=== PATIENT | male | born 1945 | race Caucasian/White ===

== ENCOUNTER 2017-04-28 06:05 | Emergency (ER) | payer OTHER ==
[~2017-04-28] VITALS: Ht 175.3 cm; Wt 104.3 kg
--- NOTE | ~2017-04-28 | EKG ---
[address] [address] ELECTROCARDIOGRAM REPORT Name: EULA LEONG Room #: DEP TEX Ernst#: [id number] Admission: 04/28/17 Attend Phys: Discharge: 04/28/17 Date of : 43 Report #: [id number] THIS REPORT FOR: //name// [facility] ED Test Date: 2017-04-28 Test Time: 08:18:00 Pat Name: EULA LEONG Department: Room: Gender: M Lamination Inspector: : 1945 Requested By: Jeffry Valdivia Order Number: [id number] MD: Saad Bennett Measurements Intervals [place] Rate: 62 P: 64 PA: 161 QRS: -36 QRSD: 101 T: 3 QT: 459 QTc: 467 Interpretive Statements Sinus rhythm Probable left atrial enlargement Abnormal R-wave progression, late transition Left ventricular hypertrophy Baseline wander in lead(s) V3,V4 Compared to ECG 06/07/2012 08:25:55 Left-axis deviation no longer present Myocardial infarct finding no longer present Electronically Signed On 05-02-2017 21:49:39 CDT by Saad Bennett [email or web address] <ELECTRONICALLY SIGNED> By: Saad Bennett MD 05/02/17 2149 7 7 Saad Bennett MD /EPI
--- NOTE | ~2017-04-28 | EKG ---
[address] [address] ELECTROCARDIOGRAM REPORT Name: EULA LEONG Room #: DEP TEX Ernst#: [id number] Admission: 04/28/17 Attend Phys: Discharge: 04/28/17 Date of : 43 Report #: [id number] THIS REPORT FOR: //name// [facility] ED Test Date: 2017-04-28 Test Time: 08:18:00 Pat Name: EULA LEONG Department: Room: Gender: M Service Or Work Dispatcher Chief: : 1945 Requested By: Jeffry Valdivia Order Number: [id number] MD: Saad Bennett Measurements Intervals [place] Rate: 62 P: 64 SD: 161 QRS: -36 QRSD: 101 T: 3 QT: 459 QTc: 467 Interpretive Statements Sinus rhythm Probable left atrial enlargement Abnormal R-wave progression, late transition Left ventricular hypertrophy Baseline wander in lead(s) V3,V4 Compared to ECG 06/07/2012 08:25:55 Left-axis deviation no longer present Myocardial infarct finding no longer present Electronically Signed On 05-02-2017 21:49:24 CDT by Saad Bennett [email or web address] <ELECTRONICALLY SIGNED> By: Saad Bennett MD 05/02/17 2149 7 7 Saad Bennett MD /EPI
[~2017-04-28 06:05] MED LIST: ASPIRIN325 PO; AXIRON90 ML PO; COSOPT OCUMETER10 M1; EFFIENT10 MG PO; FISH OIL 1,0001 EAC5 PO; GLUCOSAMIN-CHO1 EACH PO; HYZAAR 100-12.1 EACH PO; JANUMET 50-1,01 EACH PO; LUMIGAN2.5 M1; MUCINEX600 MG PO; MULTIVITAMINS1 EAC7 PO; TOPROL XL50 MG PO; VITAMIN C120 GM PO; VITAMIN E100 M1 PO; VYTORIN 10-201 EACH PO
[2017-04-28] MEDS ORDERED: ATORVASTATIN CA40 MG PO (06:45)
[2017-04-28] MEDS ORDERED: BYSTOLIC 5 MG5 M1 PO (06:46)
[2017-04-28] MEDS ORDERED: CHLORTHALIDONE25 MG PO (06:46)
[2017-04-28] MEDS ORDERED: HYDRALAZINE 2525 MG PO (06:46)
[2017-04-28] MEDS ORDERED: TRAVATAN Z2.5 ML (06:47)
[2017-04-28] MEDS ORDERED: ARTIFICIAL TEA1 EACH (06:48)
[2017-04-28] MEDS ORDERED: COMBIGAN EYE DR10 ML OPHTHALMIC (06:48)
[2017-04-28 08:14] LABS: HEMATOCRIT 36.3 % (42.0-52.0); HEMOGLOBIN 12.1 gm/dL (14.0-18.0); MCH 30.2 pg (26.0-34.0); MCHC 33.5 g/dL (28.0-37.0); MCV 90.1 fL (80.0-100.0); RBC 4.02 mil/uL (4.50-6.00); RDW 13.6 % (10.5-14.5); WBC 11.5 thou/uL (4.0-11.0)
[2017-04-28 08:55] LABS: ANION GAP 11 mmol/L (7-16); BUN 39 mg/dL (7-18); CALCIUM 9.4 mg/dL (8.5-10.1); CHLORIDE 107 mmol/L (98-107); CO2 24 mmol/L (21-32); CREATININE 2.7 mg/dL (0.7-1.3); GLUCOSE 189 mg/dL (74-106); POTASSIUM 4.3 mmol/L (3.5-5.1); SODIUM 142 mmol/L (136-145)
[2017-04-28 09:04] LABS: TROPONIN-I < 0.04 ng/mL (<0.04-0.07)
[2017-04-28] MEDS ORDERED: ZOFRAN ODT4 MG PO (09:35)
== END 2017-04-28 10:05 | disposition home or self-care (01) ==
LOC: ER 06:05
PROVIDERS: Emergency Medicine
DX: R42 Dizziness and giddiness (principal); E11.9 Type 2 diabetes mellitus without complications; I10 Essential (primary) hypertension; E78.00 Pure hypercholesterolemia, unspecified; F17.210 Nicotine dependence, cigarettes, uncomplicated; Z95.9 Presence of cardiac and vascular implant and graft, unspecified; Z79.82 Long term (current) use of aspirin

== ENCOUNTER → 2017-05-14 | Outpatient (CLI) | payer OTHER ==
[~2017-05-14] VITALS: Ht 175.3 cm; Wt 104.3 kg
[~2017-05-14] MED LIST changes: +AMARYL1 MG PO; +ARTIFICIAL TEA1 EACH; +ATORVASTATIN CA40 MG PO; +BYSTOLIC 5 MG5 M1 PO; +CHLORTHALIDONE25 MG PO; +COMBIGAN EYE DR10 ML OPHTHALMIC; +COZAAR 50 MG TA50 M2 PO; +HYDRALAZINE 2525 MG PO; +TRAVATAN Z2.5 ML; +XALATAN2.5 ML OPHTHALMIC; +ZOFRAN ODT4 MG PO
--- NOTE | ~2017-05-14 | HPC ---
[facility] [address] [place] [address] PAIN MANAGEMENT CONSULTATION Name: EULA LEONG Room #: REG CHRIST Ernst#: [id number] Admission: 05/14/17 Attend Phys: Jolene Jiménez MD Discharge: Date of : 43 Report #: [id number] THIS REPORT FOR: //name// CC: Ruben Jiménez DATE OF SERVICE: 05/14/2017 CHIEF COMPLAINT: Back and leg pain. HISTORY OF PRESENT ILLNESS: The patient is a 71-year-old gentleman who has been referred to the pain clinic for evaluation. The patient states that he has pain in his low back and down into his legs. This can be quite problematic when he is standing for a period of time. He uses a cart and gleans on it, when he goes shopping. Prolonged standing causes pain, which starts to become more problematic the longer he stands. He is limited in his ability to walk because of pain, which continues to escalates. He then sits and rests and in about 5 minutes, his pain improves. He has been seen by a aerial photographer. There was found that he had had some narrowing in the veins in his leg. He underwent a stent placement. He noted that the pain continued. It was felt that it was not vascular stenosis that was causing his pain, but probably spinal stenosis. He had an MRI of his back which did show some spinal stenosis. He has diabetes. He has come to the Pain Clinic for evaluation. ALLERGIES: No known drug allergies. MEDICATIONS: Amlodipine 5 mg, aspirin 325 daily, Lipitor, Bystolic 10 mg, chlorthalidone 25 mg, clopidogrel 75 mg, Combigan right eye b.i.d., fish oil, glimepiride 0.5 mg, Janumet 50/500 b.i.d., lorazepam 1 mg, losartan 50 mg, Travatan eye drops, vitamin C. PAST MEDICAL HISTORY: Diabetes, hypercholesterolemia, hypertension, ataxia -- patient has some dizziness, he has seen an ENT in the past. Chronic low back pain and spinal stenosis, cervical spondylosis without myelopathy. Hereditary and idiopathic peripheral neuropathy, obstructive sleep, claustrophobia, phobia/anxiety disorder, takes lorazepam. Glaucoma and heart disease. EMG demonstrated neuropathy. Also cervical spine MRI in the past in 2013 revealed mild central disk protrusion at C4/C5 with cord deformity. ENT evaluation: The patient was dissatisfied with ENT physician secondary to receiving medications, which he states elevated his blood sugar and he was not told that could be a problem. FAMILY HISTORY: Father; malignant tumor of the lung ____, senility. Mother; heart disease, diabetes, anxiety. Father at age 84, lung cancer. Mother at age 72[place] [address] PAIN MANAGEMENT CONSULTATION Name: EULA LEONG Room #: REG CL Sujata#: [id number] Admission: 05/14/17 Attend Phys: Jolene Jiménez MD Discharge: Date of : 43 Report #: [id number] SOCIAL HISTORY: He is retired. Four years of college. , 4 children. Smokes cigarettes. Denies use of alcohol or drugs. PAST SURGICAL HISTORY: Heart stent in 1991. Eye surgery for glaucoma 12/31 and 01/31. REVIEW OF SYSTEMS: 14 points reveals recent weight change, fatigue, weakness, eye disease, blurred/double vision, glaucoma, hearing loss, earaches and damage, heart trouble, shortness of breath, palpitations, lightheadedness, dizziness, numbness and tingling sensation in the lower extremities and down on his toes, diabetes, hot and cold intolerance, excessive thirst/urination. LABORATORY DATA: MRI of the lumbar spine dated 09/16/2016 reveals: 1. L4-L5, stable broad bulge and moderate anterior and posterior spondylosis. Posterior osteophyte complex with facet arthrosis and ligamentum flavum hypertrophy resulting in stable mild to moderate spinal, moderate right neural foramen, and mid left foraminal stenosis. 2. L5-S1, stable broad bulge with moderate anterior and posterior spondylosis. Posterior disk osteophyte complex with facet arthrosis and ligamentum flavum hypertrophy, resulting stable moderate spinal and mild bilateral foraminal stenosis. Stable disk osteophyte complex encroachment upon bilateral S1 nerve roots. Stable usual levoscoliosis. PHYSICAL EXAMINATION: Blood pressure 141/94, pulse 66, respiratory rate 16, room air saturation is 100%. Height 5 feet 9 inches, weight 230 pounds, BMI is 33. The patient has some dizziness and vertigo associated with his inner ear. He did not pursue further evaluation. His ENT referred him to a treatment plan of which he did not agree. The patient complains of some numbness and tingling down his feet. Complains of pain and discomfort in the low back area and pain, which radiates down into the left buttocks after sitting or with prolonged walking and activity. He notes cramping, aching discomfort in the low back area, which limits his ability to ambulate. Pain improves and decreases after sitting for about 5 minutes. ASSESSMENT: Spinal stenosis as described above. Other impression as in past medical history. RECOMMENDATIONS: We discussed treatment options with the patient. Risks and benefits of epidural steroid injection were explained. Possible complications of the procedure were discussed. A model was used to indicate the area of probable pathology. The patient at this juncture elects to consider his options. He will follow up in the Pain Clinic in the future should he decide to undergo an epidural steroid injection. [facility] [address] [place] [address] PAIN MANAGEMENT CONSULTATION Name: EULA LEONG Room #: REG [facility] Olivia.#: [id number] Admission: 05/14/17 Attend Phys: Jolene Jiménez MD Discharge: Date of : 43 Report #: [id number] We would like to thank you for letting us participate in his care. A total of 45 minutes time was spent in evaluating and answering the patient's questions. By: 1430 1544 Jolene Jiménez MD /
[2017-05-14 10:25] VITALS: BP 141/94
== END ==
LOC: PAIN 07:04
DX: M48.06 Spinal stenosis, lumbar region (principal); M79.605 Pain in left leg; M79.604 Pain in right leg

== ENCOUNTER 2020-04-05 21:18 | Inpatient (IN) | payer OTHER, BC ==
[~2020-04-05] VITALS: Ht 175.3 cm; Wt 100.0 kg
[~2020-04-05 21:18] MED LIST changes: +COZAAR 50 MG TA50 M1 PO; -COZAAR 50 MG TA50 M2 PO
[2020-04-05 21:22] VITALS: BP 187/63
[2020-04-05 22:46] LABS: ABSOLUTE NEUTROPHILS 9.6 thou/uL (1.4-8.2); BASOPHILS 0.7 % (0.0-2.0); EOSINOPHILS 0.5 % (0.0-3.0); HEMATOCRIT 22.1 % (42.0-52.0); HEMOGLOBIN 7.3 gm/dL (14.0-18.0); LYMPHOCYTES 5.1 % (24.0-44.0); MCHC 33.2 g/dL (28.0-37.0); MCV 90.3 fL (80.0-100.0); MONOCYTES 4.6 % (1.0-8.0); PLATELET COUNT 225 thou/uL (150-400); POLYS 89.1 % (36.0-66.0); RBC 2.44 mil/uL (4.50-6.00); RDW 15.5 % (10.5-14.5); WBC 10.7 thou/uL (4.0-11.0)
[2020-04-05 23:04] LABS: ALBUMIN 2.7 g/dL (3.4-5.0); ANION GAP 20 mmol/L (7-16); BUN 91 mg/dL (7-18); CALCIUM 8.1 mg/dL (8.5-10.1); CHLORIDE 104 mmol/L (98-107); CREATININE 10.4 mg/dL (0.7-1.3); GLUCOSE 186 mg/dL (74-106); LIPASE 528 U/L (73-393); POTASSIUM 4.1 mmol/L (3.5-5.1); SGOT 13 U/L (15-37); SGPT 11 U/L (30-65); SODIUM 134 mmol/L (136-145); TOTAL BILIRUBIN 0.1 mg/dL (0.2-1.0); TOTAL PROTEIN 7.5 g/dL (6.4-8.2); TROPONIN-I <0.06 ng/mL (<0.06)
[2020-04-05 23:05] LABS: CO2 10 mmol/L (21-32)
[2020-04-05] MEDS ORDERED: ASA81BEC PO (23:14)
[2020-04-05] MEDS ORDERED: DEMADEX20 MG PO (23:15)
[2020-04-05] MEDS ORDERED: IRON PO (23:16)
[2020-04-05] MEDS ORDERED: VITAMIN B-121000 MC2 PO (23:20)
[2020-04-05] MEDS ORDERED: SODIUM BICARBONATE PO (23:24)
[2020-04-05 23:50] LABS: BE(vivo) -21.1 mmol/L (-2 to +3); HCO3 7.1 mmol/L (22.0-26.0); PCO2 VENOUS 24.3 mmHg (41.0-51.0); PO2 VENOUS 97.7 mmHg (35.0-45.0)
[2020-04-06] VITALS (7 sets, daily range): BP systolic 133–154; BP diastolic 49–68
[2020-04-06] MEDS ORDERED: SIMBRINZA 1%-0.28 ML (00:31)
[2020-04-06] MEDS ORDERED: CALCITRIOL0.25 MCG PO (00:32)
[2020-04-06] MEDS ORDERED: BETIMOL5 ML OPHTHALMIC (00:38)
[2020-04-06] MEDS ORDERED: ACTOS15 MG PO (00:47)
[2020-04-06] MEDS ORDERED: IRON325 M1 PO (01:39)
--- NOTE | 2020-04-06 03:49 | NUR ---
HAVE ATTEMPTED TO CALL REPORT X2, NURSE EITHER BUSY OR PUT ON HOLD FOR SEVERAL MINUTES. WILL CONTINUE TO ATTEMPT OR PERFORM BEDSIDE REPORTING.
--- NOTE | 2020-04-06 03:52 | NUR ---
ATTEMPTING TO CALL FOR 3RD TIME FOR REPORT. NO ANSWER THUS FAR.
[2020-04-06 07:25] LABS: WBC 8.7 thou/uL (4.0-11.0)
[2020-04-06 07:27] LABS: HEMATOCRIT 20.6 % (42.0-52.0); HEMOGLOBIN 6.8 gm/dL (14.0-18.0); MCH 30.3 pg (26.0-34.0); MCHC 33.2 g/dL (28.0-37.0); MCV 91.3 fL (80.0-100.0); RBC 2.26 mil/uL (4.50-6.00); RDW 15.4 % (10.5-14.5)
[2020-04-06 07:43] LABS: CALCIUM 8.2 mg/dL (8.5-10.1); POTASSIUM 4.3 mmol/L (3.5-5.1)
[2020-04-06 07:45] LABS: % SATURATION 19 % (20-39); IRON 31 ug/dL (65-175); TIBC 160 ug/dL (250-450)
[2020-04-06 07:48] LABS: CREATININE 9.4 mg/dL (0.7-1.3)
[2020-04-06 08:09] LABS: CHOLESTEROL 138 mg/dL (<200); HDL CHOLESTEROL 46 mg/dL (>40); LDL CHOLESTEROL 70 mg/dL (<100); TRIGLYCERIDE 113 mg/dL (<150); VLDL 23 mg/dL (<40)
[2020-04-06 08:26] LABS: FOLIC ACID 7.5 ng/mL (8.6-58.9)
--- NOTE | 2020-04-06 09:10 | NUR ---
PT ADMITTED TO ROOM 355 FROM ER, VSS, HT AND WT TAKEN, PT ON HEART MONITOR, EDUCATED ON ADMISSION CONCERNS, HOME MEDS SENT TO LAB, CELL PHONE AND HOME PHONE HAND SET AND WALLET WITH PT. CLOTHING AND SHOES PLACED IN BAG. NO C/O PAIN STATED HE WAS JUST TOO WEAK TO CARE FOR SELF AT HOME. REPORT GIVEN TO NEXT SHIFT TO CON'T WITH PPOC.
--- NOTE | 2020-04-06 16:37 | NUR ---
ASSESSMENT CHARTED. PT ALERT AND ORIENTED. VSS. DENIED HAVING PAIN OR DISCOMFORT. COVID TEST NEGATIVE. INFECTION DISEASE NURSE NOTIFIED. SUGGESTED TO DO 2ND COVID TEST. PT REFUSED THE 2ND COVID TEST. SEEN BY FORMING MACHINE OPERATOR. NEW ORDERS NOTED. DROPLET COVID PRECAUTION MAINTAINED. NO NAUSEA OR DIARRHEA THIS THIS SHIFT. WILL CONTINUE TO MONITOR.
--- NOTE | 2020-04-07 01:47 | NUR ---
Patient instructed earlier for need for stool specimen. Went to bathroom, did not save stool specimen. Stated it was formed.
--- NOTE | 2020-04-07 04:10 | NUR ---
Patient making slow progress towards outcome goals. Vital signs and rhythm stable. Afebrile. Denies pain. Gait steady up to bathroom. IVFluids with Bicarb infusing. COVID negative and refused 2nd swab ordered. No fever since admission. Formed BM x 1 which patient did not save.
[2020-04-07 04:45] VITALS: BP 148/78
[2020-04-07 05:38] LABS: GLYCOHEMOGLOBIN (HGB A1C) 6.3 % (4.8-5.6)
[2020-04-07 06:22] LABS: ALBUMIN 2.4 g/dL (3.4-5.0); CALCIUM 7.8 mg/dL (8.5-10.1); PHOSPHORUS 7.5 mg/dL (2.5-4.9); POTASSIUM 4.1 mmol/L (3.5-5.1)
[2020-04-07 06:38] LABS: CREATININE 10.5 mg/dL (0.7-1.3)
[2020-04-07 07:41] VITALS: BP 145/59
--- NOTE | 2020-04-07 10:29 | NUR ---
PT MAY BE REMOVED FROM ENHANCED PRECAUTIONS PER ZOE AGUILAR
--- NOTE | 2020-04-07 14:21 | HC ---
[facility] [place] [address] CONSULTATION Name: EULA LEONG Room #: 355-P ADM IN M.R.#: [id number] Admission: 04/06/20 Attend Phys: Amador Orourke MD Discharge: Date of : 43 Report #: [id number] THIS REPORT FOR: cc: Ruben Holm MD, Cabot L. MD Neufeld, Timothy K. MD ~ CC: Ruben Orourke DATE OF SERVICE: 04/06/2020 NEPHROLOGY CONSULTATION REASON FOR CONSULTATION: Renal failure. HISTORY OF PRESENT ILLNESS: This is a 74-year-old male who came into the Emergency Room with several complaints. He has been weak. He has lost his appetite. He states he has had diarrhea for 1-2 months with frequent liquid stools. He has developed a bad taste in his mouth and he says it is metallic in nature. He has not had any edema. He says he has felt lightheaded and dizzy at times and is concerned that he is dehydrated. Upon presentation to the Emergency Room, he has labs that will be noted below, but frankly he is in renal failure with a creatinine of over 10. The patient denies much knowledge of his renal status. Although as our discussion continued, I think he is more aware that he admits. I was able to find that he saw one of my practice associates in the office for at least 4 years from 2014 until of 01/2019. That was with Dr. Jose Espino. He was last seen in 01/2019 and at that time, his creatinine level was about 3.8. He was instructed to obtain some additional renal and renal replacement therapy education and consider getting a fistula placed in his arm. He was due to be seen back a few months after that, but then did not follow up. He states frankly that he fired Dr. Espino because his kidneys were getting worse. More recently, he has been seen in [place] by Dr. Velázquez. Dr. Velázquez has told him he needs to prepare for dialysis and the patient is ready to stop seeing Dr. Velázquez because once again his kidneys are getting worse. He has not gone for evaluation for dialysis access. He does not know what his most recent creatinine levels have been. He states for the most part he has been taking his medications. He has had many of the symptoms as noted above. He has had no difficulty voiding urine now. He reports no recent edema. He has had some mild myoclonus, mild pruritus. No fevers or chills. He has had occasional cough and some dyspnea with exertion. Nothing to suggest COVID disease and he was tested in the Emergency Room and is negative. PAST MEDICAL HISTORY: Type 2 diabetes with an onset about 1989 and hypertension was diagnosed about the same time. He has had progressive chronic kidney [address] [address] CONSULTATION Name: EULA LEONG Room #: 355-P [facility] IN ..#: [id number] Admission: 04/06/20 Attend Phys: Amador Orourke MD Discharge: Date of : 43 Report #: [id number] disease over the years. He has been maintained on multiple antihypertensive medications at least when he was still being seen in our office including losartan, Bystolic, amlodipine and chlorthalidone. When I asked about what he is taking now, he is a bit uncertain. He has a history of coronary artery disease and had a coronary artery stent placed in 2010. He has hyperlipidemia, previous cataract removal, some glaucoma. MEDICATIONS: On admission and I am not sure if this is accurate, include losartan 100 mg daily, Bystolic 10 mg daily, chlorthalidone 25 mg daily. Those do match our office records. He is listed as being on Actos, Amaryl, Janumet, but the only one of those that matches our office records from a year ago was the Janumet and he is not willing to really tell me what he is taking. It looks like he has been on some loop diuretic in the form of torsemide. He is now on some iron. Also, hydralazine, aspirin, sodium bicarbonate, but he does not recognize that he is taking those, when I talked to him about that. ALLERGIES: No known medical allergies. FAMILY HISTORY: Father was of lung cancer. Mother was with diabetes and heart disease. He has 1 brother who is alive and does help him out with some of his medical needs. He is not . SOCIAL HISTORY: Lives in [place], [place]. 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 REVIEW OF SYSTEMS: Mainly positive for those symptoms noted above including decreased appetite, some metallic taste in his mouth. Mild nausea. No vomiting. Frequent diarrhea, sometimes 8-10 stools a day, which were all liquid. He reports never a solid stool. Denies abdominal cramping. Denies blood loss in his stools. Reports no difficulty voiding urine. No recent problems with edema. He says it is controlled with his diuretics, which apparently he has been taking. He has had a couple of days of some lightheadedness and dizziness when he arises suggesting hypotension. He is unaware of fevers, chills or sweats. He has mild cough. He has noticed some myoclonus when I asked. PHYSICAL EXAMINATION: GENERAL: Elderly appearing male, somewhat lethargic. VITAL SIGNS: Blood pressure 139/49, heart rate 59, temperature 97.5. He did have a fever to 102.2 on arrival. Oxygen saturation 100%. HEENT: Shows pupils are equal and reactive. Sclerae nonicteric. Oral mucosa is moist. NECK: Supple without adenopathy, thyromegaly, JVD or bruit. CHEST: Clear throughout. BACK: Shows no CVA tenderness. CARDIOVASCULAR: Heart has a regular rate and rhythm. [facility] [address] [place] [address] CONSULTATION Name: EULA LEONG Room #: 355-P [facility] IN ..#: [id number] Admission: 04/06/20 Attend Phys: Amador Orourke MD Discharge: Date of : 43 Report #: [id number] ABDOMEN: Bowel sounds which are present. It is soft, nontender, nondistended. I cannot palpate organomegaly or masses. EXTREMITIES: Show no edema in fact he has borderline low skin turgor. LABORATORY DATA: From admission, sodium 134, potassium 4.1, chloride 104, bicarbonate 10, BUN 91, creatinine 10.4, after some IV fluid, BUN 89, creatinine 9.4 with a bicarbonate of 11, AST 13, ALT 11, total bilirubin 0.1, calcium 8.2, total protein 7.5, albumin 2.7, lactate 0.7. White count 10.7, hemoglobin 7.3, hematocrit 22.1 with an MCV of 91.3, platelets 225,000. Original urinalysis not done. Blood gas; pH 7.08, pCO2 of 24.3, pO2 of 97.7. Portable chest x-ray was done, which showed no rafy infiltrates. ASSESSMENT: 1. Renal failure. He certainly has a chronic component with longstanding chronic kidney disease. He likely has late stage 4 or early stage V chronic kidney disease. This is due to diabetes and hypertension and has been evaluated by several nephrologists in the past. Unfortunately, he has not been very interested in learning more about progressive renal failure, preparation for dialysis, dietary changes, or things that would help him get through this advancing process of his renal failure. He presents at this time with a creatinine of 10. We will see how much of that is reversible. He does look a bit dry on exam. We will give him some IV fluids. He is very acidotic, so we will give him some IV bicarbonate, in addition. I will also start him on some oral bicarbonate to help get the acidosis corrected. In the interim, we will have more discussions about his thoughts on dialysis and try to do some additional education as well as something to fall back on when making decisions about what he wants to do. If we see his creatinine improve dramatically, we will plan on not doing a doing dialysis, but if he does not get much better, we will need to get him on dialysis sooner than later. We will have more discussions with him about this. 2. Hypertension, longstanding, actually dropped a bit low, suggesting it was a bit volume replete. We will give him back some IV fluids and monitor urine output. 3. Metabolic acidosis, severe. Bicarb is only 10 with an increased anion gap. I will put him on some oral bicarbonate as well as some IV bicarbonate to help correct that. 4. Anemia, severe, likely due to his renal failure. Iron levels are adequate. I will give him a big dose of erythropoietin subcutaneously to jump start his erythropoiesis. 5. Coronary artery disease with prior single coronary stent. 6. Peripheral vascular disease with prior right lower extremity stent. PLAN: 1. I will change his IV fluids to half normal saline with 75 mEq per liter of sodium bicarbonate and increase his rate to 100 mL per hour. [address] [address] CONSULTATION Name: EULA LEONG Room #: 355-P ADM IN Sujata#: [id number] Admission: 04/06/20 Attend Phys: Amador Orourke MD Discharge: Date of : 43 Report #: [id number] 2. Monitor intake and output. 3. Recheck labs in the morning. 4. Further education and counseling with the patient concerning decisions with progressive renal failure/end-stage renal disease. We may need to start him on dialysis while still in the hospital. 5. I will give him a big dose of erythropoietin to help with erythropoiesis. 6. We will follow along very closely in the care of this patient and assist in his management. <ELECTRONICALLY SIGNED> By: Aiden Holguin MD 04/07/20 1421 1458 1908 Aiden Holguin MD /nt
[2020-04-07 15:57] VITALS: BP 140/52
[2020-04-07 19:35] VITALS: BP 146/58
--- NOTE | 2020-04-07 19:38 | NUR ---
PT AGREED TO HAVE DIALYSIS CATH PLACED IN IR TOMORROW...WILL START DIALYSIS TOMORROW..
--- NOTE | 2020-04-07 20:51 | NUR ---
Patient out of isolation. COVID negative, afebrile over 24 hours. Transfer to 463, report given to Dahlia CAPONE. IVFluids infusing. Patient aware of planned dialysis catheter placement tomorrow. Daughter Ian appraised of progress, plan and transfer orders.
[2020-04-07 23:40] VITALS: BP 151/54
--- NOTE | 2020-04-08 04:51 | NUR ---
PT TRANSFERRED FROM 3W. AXOX4. INDEPENDENT WITH ADLs. VSS. EXPLAINED TO PT ABOUT STRONG NEED FOR URINE AND FECAL COLLECTION. TOILET WAS ALL SET WITH COLLECTION AND PT WOULD NOT COMPLY WITH COLLECTION PROCESS. STRONGLY ENCOURAGED TO CALL AND NEXT TIME TO ATTEMPT COLLECTION. NO S/S ACUTE DISTRESS NOTED OR REPORTED AT THIS TIME. WILL CONT TO MONTIOR FOR ANY CHANGES IN CONDITION.
[2020-04-08 05:51] LABS: MCH 30.2 pg (26.0-34.0); MCHC 33.8 g/dL (28.0-37.0); MCV 89.3 fL (80.0-100.0); WBC 9.2 thou/uL (4.0-11.0)
[2020-04-08 06:26] LABS: ALBUMIN 2.3 g/dL (3.4-5.0); CALCIUM 7.1 mg/dL (8.5-10.1); CREATININE 10.4 mg/dL (0.7-1.3); PHOSPHORUS 6.9 mg/dL (2.5-4.9); POTASSIUM 3.8 mmol/L (3.5-5.1)
[2020-04-08 06:27] LABS: HEMATOCRIT 17.9 % (42.0-52.0)
[2020-04-08 07:34] VITALS: BP 148/55
[2020-04-08 07:35] LABS: PROTIME 10.1 Seconds (9.3-11.4)
--- NOTE | 2020-04-08 08:04 | EKG ---
[facility] [place] [address] [place] [address] ELECTROCARDIOGRAM REPORT Name: EULA LEONG Room #: 463-P ADM IN M.R.#: [id number] Admission: 04/06/20 Attend Phys: Teddy Noble MD Discharge: Date of : 43 Report #: [id number] THIS REPORT FOR: cc: Ruben Holm MD, Cabot L. MD Lundgren, Craig H. MD [facility] ~ THIS REPORT FOR: //name// [facility] ED Test Date: 2020-04-06 Test Time: 00:47:06 Pat Name: EULA LEONG Department: Room: 46 Gender: M Manager Cargo: PHYLLIS : 1945 Requested By: Raul Ulloa Order Number: [id number] MD: Severino Griffin Measurements Intervals [place] Rate: 71 P: 73 VA: 163 QRS: -39 QRSD: 116 T: 77 QT: 438 QTc: 476 Interpretive Statements Sinus rhythm Nonspecific IVCD with LAD Left ventricular hypertrophy Poor R wave progression Compared to ECG 04/28/2017 08:18:00 No significant change was found Electronically Signed On 04-08-2020 8:04:48 CDT by Severino Griffin [email or web address] <ELECTRONICALLY SIGNED> By: Severino Griffin MD, FAC 04/08/20 0804 0047 0047 Severino Griffin MD, FAC /EPI
[2020-04-08 08:10] LABS: CALCIUM 7.1 mg/dL (8.5-10.1); CREATININE 10.4 mg/dL (0.7-1.3)
[2020-04-08 08:11] LABS: PHOSPHORUS 6.9 mg/dL (2.5-4.9)
[2020-04-08 17:54] VITALS: BP 146/54
--- NOTE | 2020-04-08 19:07 | NUR ---
ASSESSMENT DOCUMENTED. 1UNIT OF BLOOD GIVEN BY MACHINE OPERATOR TRANSPLANTERJESSICA. PT RESTING IN BED WITH CALL LIGHT IN REACH. WILL CONTINUE TO MONITOR.
[2020-04-08 20:51] VITALS: BP 142/59
[2020-04-08 23:06] LABS: HEP B SURFACE Ab(ANTI-HBS Non Reactive (()); HEPATITIS B SURFACE AG Negative (Negative)
[2020-04-09 07:15] VITALS: BP 182/86
--- NOTE | 2020-04-09 07:16 | NUR ---
progress pt a/o x4 but gets confused at times, up ad rafia voiding qs refuses to use urinal and no urine visualized but pt found in bathroom frequently. dialysi catheter intact site a little bloody but no s/s/ of infection noted. to continue dialysis.
[2020-04-09 09:00] LABS: HEMATOCRIT 20.5 % (42.0-52.0); MCH 30.2 pg (26.0-34.0); MCHC 34.3 g/dL (28.0-37.0); MCV 88.2 fL (80.0-100.0); RBC 2.33 mil/uL (4.50-6.00); RDW 14.6 % (10.5-14.5); WBC 8.3 thou/uL (4.0-11.0)
--- NOTE | 2020-04-09 09:21 | NUR ---
Medications not given in the am, started dialysis early in the am and dialysis nurse does not want for pt to eat or have any medication given.
[2020-04-09 09:41] LABS: ALBUMIN 2.5 g/dL (3.4-5.0); CALCIUM 7.6 mg/dL (8.5-10.1); TOTAL BILIRUBIN 0.2 mg/dL (0.2-1.0); TOTAL PROTEIN 6.5 g/dL (6.4-8.2)
[2020-04-09 09:42] LABS: CREATININE 5.1 mg/dL (0.7-1.3)
--- NOTE | 2020-04-09 10:13 | NUR ---
PT ADMITTED RELATED TO DEB, PUI, ACIDOSIS, AND DIARRHEA. CM REVIEWED CHART AND SPOKE WITH CARE TEAM. PT HAD DIALYSIS CATHETER PLACED YESTERDAY ADN UNDERWENT FIRST TREATMENT OF HEMODIALYSIS. PT GETTING DIALYSIS AGAIN TODAY. CARE TEAM INDICATED PT IS TOO WEAK TO CARE FOR SELF AT HOME AT THIS TIME. PT AND OT ORDERED HAVEN'T ASSESSED PT YET. CM CALLED AND SPOKE WITH PT'S DTR SHE INDICATED THAT PT RESIDES IN A HOUSE IN [place] WITH HIS BROTHER ASHTYN WITH 6-8 STEPS TO ENTER AND 5 STEPS TO HIS BEDROOM. 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 SHE INDICATED NO DME. SHE INDICATED PT HAD BEEN DRIVING BUT NOT WHEN HE HAD BEEN FEELING WEAK. CM SPOKE WITH HER ABOUT DIALYSIS TREATMENT UPON DC AND SHE INDICATED [facility] MIGHT BE PREFERRED DUE TO PROXIMITY TO HOME. CM INDICATED THAT PT MAY NEED POST ACUTE CARE STAY UPON DC SHE INDICATED PT IS [place] BUT MIGHT CONSENT. CM TO FOLLOW UP AND DISCUSS WITH PT WHO IS CURRENTLY ON DIALYSIS. CM TO FOLLOW INDICATED WITH DC PLANNING.
[2020-04-09 16:00] VITALS: BP 186/63
--- NOTE | 2020-04-09 19:23 | NUR ---
Assumed pt care this am, pt is very confused and refused to have his meals through out the day. Dialysis done this am removed .5 liters as per dialysis nurse.Pt is very impulsive and irrational most of the time, believes he works with [employer]. Would get up and go to the toilet, does not call appropriately. FAll precautions in place. all meds are tolerated well. POC followed with no signs or verbalizations of distress noted. Endorsed to the night nurse.
[2020-04-09 20:13] VITALS: BP 144/44
--- NOTE | 2020-04-10 09:31 | NUR ---
pt delusional talking gibberish and refusing all treatments and meds physician notified awaiting hospitalist to request psych consult.
[2020-04-10 09:48] VITALS: BP 183/64
[2020-04-10 13:05] LABS: ALBUMIN 2.1 g/dL (3.4-5.0); CALCIUM 7.6 mg/dL (8.5-10.1); CREATININE 5.2 mg/dL (0.7-1.3); PHOSPHORUS 2.9 mg/dL (2.5-4.9)
[2020-04-10 13:09] LABS: POTASSIUM 2.8 mmol/L (3.5-5.1)
[2020-04-10 13:17] LABS: HEMATOCRIT 21.3 % (42.0-52.0); HEMOGLOBIN 7.2 gm/dL (14.0-18.0); MCH 30.3 pg (26.0-34.0); RBC 2.39 mil/uL (4.50-6.00); RDW 14.5 % (10.5-14.5); WBC 9.3 thou/uL (4.0-11.0)
[2020-04-10 15:20] VITALS: BP 152/69
--- NOTE | 2020-04-10 16:38 | NUR ---
CM FAXED REFERRAL TO [facility] FOR ESTABLISHMENT FOR OP HEMODIAYSIS. CM TO FOLLOW INDICATED WITH DC PLANNING.
--- NOTE | 2020-04-10 20:02 | NUR ---
Assumed pt care this am, pt is confused has delusions. Refused lab, dialysis done labs were drawn through dialysis. Critical labs for potassium called out to dev SMITH to inform Renal, was advised that critical lab will resolve with dialysis and informed that I ask behavioral health case manager to work on pt transfering service for dialysis to [facility], behavioral health case manager informed. REfused meals and some medication, brother of pt came and and ariel up a burger pt ate half. POC followed, with no signs or distress noted. endorsed to the night nurse.
[2020-04-11 08:36] VITALS: BP 171/77
--- NOTE | 2020-04-11 09:26 | NUR ---
PROGRESS PT STILL DELUSIONAL STATES HE DOESN'T NEED TO BE HERE AND THAT DIALYSIS IS DOING NOTHING FOR HIM REFUSED ALL MEDS AND BARELY ALLOWED A PHYSICAL ASSESSMENT.
--- NOTE | 2020-04-11 11:46 | NUR ---
[facility] DOESN'T HAVE ANY OPENINNGS AT THIS TIME. CM SENT REFERRAL TO [facility] FOR REVIEW FOR POSSIBLE ADMISSION. AWAITING THEIR REVIEW. CM TO FOLLOW INDICATED WITH DC PLANNING.
[2020-04-11 15:00] VITALS: BP 141/71
[2020-04-11 20:03] VITALS: BP 154/62
--- NOTE | 2020-04-11 20:05 | NUR ---
Assumed pt care this am, pt is more oriented today compared to previous days. Pt took most of his am and lunch, refused some of the pm meds and wants to eat his dinner later on in the pm. Jacklyn sample taken and given to lab. POC followed with no signs or verbalizations of distress noted. Endorsed tot night nurse.
--- NOTE | 2020-04-12 04:08 | NUR ---
VSS-AFEBRILE. LUNGS CLEAR-ROOM AIR. MULTIPLE EPISODES OF DIARRHEA TRHOUGH NIGHT. MEDICATED ONCE WITH ZOFRAN FOR AN INSTANCE OF NAUSEA. COPMPLETE RELIEF NOTED. REMAINED ALERT AND ORIENTED X 4. CAN BE IMPULSIVE, EDUCATED ON IMPORTANCE OF CALLING FOR STAFF ASSISTANCE TO USE RESTROOM, VERBALIZED UNDERSTANDING. FALL PRECAUTIONS IN PLACE.
--- NOTE | 2020-04-12 10:28 | NUR ---
CM CALLED AND SPOKE WITH ELLIE DIRECTOR AT [facility] THIS AM. HE WILL REVIEW SCHEDULE AND THINKS THEY WILL LIKELY HAVE A WEDNESDAY CHAIR TIME FOR PT TO LET CM KNOE IN 20 MINS. CM TO FOLLOW INDICATED WITH DC PLANNING.
--- NOTE | 2020-04-12 11:35 | NUR ---
Received awake on bed. Due medications given as prescribed, able to swallow meds w/o difficulty. On room air. Vital signs stable. On renal diet- tolerating well; no nausea, no vomiting and no abdominal pain noted. On telemetry- SR, strips attached to chart; no complaints of chest pain, crushing and heaviness. On blood sugar monitoring- pt has been refusing blood sugar monitoring- Dr Noble informed and aware. With dialysis access at L Chest- dressing C/D/I. With SL at R FA. Assisted in ADLs. Falls bundle in place. Pt seen and examined by Dr Noble- possible discharge today; a/w CM to set up outpatient dialysis- a/w input from CM once set up and referrals done. To continue monitoring patient.
[2020-04-12 11:43] VITALS: BP 154/58
[2020-04-12] MEDS ORDERED: SODIUM BICARBO650 M3 PO (11:53)
[2020-04-12] MEDS ORDERED: RENVELA800 MG PO (11:53)
[2020-04-12 12:24] LABS: HEMATOCRIT 23.3 % (42.0-52.0); HEMOGLOBIN 7.8 gm/dL (14.0-18.0); MCH 30.6 pg (26.0-34.0); MCHC 33.5 g/dL (28.0-37.0); MCV 91.4 fL (80.0-100.0); RBC 2.55 mil/uL (4.50-6.00); RDW 14.8 % (10.5-14.5)
[2020-04-12 14:13] VITALS: BP 154/58
[2020-04-12 14:17] VITALS: BP 154/58
== END 2020-04-12 17:38 | disposition home health service (06) | DRG 673 ==
LOC: ER 21:18 → 3W 04-06 00:26 → 4W 04-06 00:26 → EROBS 04-06 00:26 → 3W 04-06 04:03 → 4W 04-07 20:57
PROVIDERS: Emergency Medicine; Hospitalist; Internal Medicine Nephrology; Nurse Practitioner; Nurse Practitioner Family; Radiology Diagnostic Radiology; ADMIT Internal Medicine; ATTEND Internal Medicine
PROC: 30233N1 Transfusion of Nonautologous Red Blood Cells into Peripheral Vein, Percutaneous Approach (ICD-10-PCS; principal; 2020-04-08)
PROC: 02H633Z Insertion of Infusion Device into Right Atrium, Percutaneous Approach (ICD-10-PCS; principal; 2020-04-08)
PROC: 5A1D70Z Performance of Urinary Filtration, Intermittent, Less than 6 Hours Per Day (ICD-10-PCS; principal; 2020-04-08)
PROC: 0JH63XZ Insertion of Tunneled Vascular Access Device into Chest Subcutaneous Tissue and Fascia, Percutaneous Approach (ICD-10-PCS; principal; 2020-04-08)
PROC: B5181ZA Fluoroscopy of Superior Vena Cava using Low Osmolar Contrast, Guidance (ICD-10-PCS; principal; 2020-04-08)
PROC: B548ZZA Ultrasonography of Superior Vena Cava, Guidance (ICD-10-PCS; principal; 2020-04-08)
PROC: 5A1D70Z Performance of Urinary Filtration, Intermittent, Less than 6 Hours Per Day (ICD-10-PCS; 2020-04-12)
DX: I12.0 Hypertensive chronic kidney disease with stage 5 chronic kidney disease or end stage renal disease (principal); N17.0 Acute kidney failure with tubular necrosis; G92 Toxic encephalopathy; K85.90 Acute pancreatitis without necrosis or infection, unspecified; E43 Unspecified severe protein-calorie malnutrition; N18.6 End stage renal disease; E87.2 Acidosis; E44.0 Moderate protein-calorie malnutrition; N17.9 Acute kidney failure, unspecified; Z20.828 Contact with and (suspected) exposure to other viral communicable diseases; E78.5 Hyperlipidemia, unspecified; I25.10 Atherosclerotic heart disease of native coronary artery without angina pectoris; E11.51 Type 2 diabetes mellitus with diabetic peripheral angiopathy without gangrene; E11.22 Type 2 diabetes mellitus with diabetic chronic kidney disease; D63.8 Anemia in other chronic diseases classified elsewhere; E11.42 Type 2 diabetes mellitus with diabetic polyneuropathy; E83.39 Other disorders of phosphorus metabolism; G47.00 Insomnia, unspecified; R63.4 Abnormal weight loss; D64.9 Anemia, unspecified; F43.20 Adjustment disorder, unspecified; Z79.82 Long term (current) use of aspirin; Z95.5 Presence of coronary angioplasty implant and graft; Z98.49 Cataract extraction status, unspecified eye; Z80.1 Family history of malignant neoplasm of trachea, bronchus and lung; Z82.49 Family history of ischemic heart disease and other diseases of the circulatory system; Z95.820 Peripheral vascular angioplasty status with implants and grafts; Z68.32 Body mass index [BMI] 32.0-32.9, adult; Z79.899 Other long term (current) drug therapy; Z99.2 Dependence on renal dialysis
CPT/HCPCS: 10045; 10879; 32100

== ENCOUNTER → 2020-05-09 | Outpatient (CLI) | payer OTHER, BC ==
[~2020-05-09] MED LIST changes: +ACTOS15 MG PO; +ASA81BEC PO; +BETIMOL5 ML OPHTHALMIC; +CALCITRIOL0.25 MCG PO; +DEMADEX20 MG PO; +IRON PO; +IRON325 M1 PO; +RENVELA800 MG PO; +SIMBRINZA 1%-0.28 ML; +SODIUM BICARBO650 M3 PO; +SODIUM BICARBONATE PO; +VITAMIN B-121000 MC2 PO
== END ==
LOC: SJCVC 16:39
PROVIDERS: ATTEND Internal Medicine Cardiovascular Disease
DX: R94.31 Abnormal electrocardiogram [ECG] [EKG] (principal); I44.4 Left anterior fascicular block; E11.22 Type 2 diabetes mellitus with diabetic chronic kidney disease; N18.6 End stage renal disease; G47.33 Obstructive sleep apnea (adult) (pediatric); I73.9 Peripheral vascular disease, unspecified; I65.23 Occlusion and stenosis of bilateral carotid arteries; R06.09 Other forms of dyspnea; Z98.890 Other specified postprocedural states; Z86.79 Personal history of other diseases of the circulatory system; Z99.2 Dependence on renal dialysis

== ENCOUNTER → 2020-05-14 | Outpatient (CLI) | payer OTHER, BC | LOC: SJCVCIMAG 11:16 | PROVIDERS: ATTEND Internal Medicine Cardiovascular Disease | DX: I25.10 Atherosclerotic heart disease of native coronary artery without angina pectoris (principal); N18.6 End stage renal disease; Z99.2 Dependence on renal dialysis; Z79.899 Other long term (current) drug therapy; Z79.82 Long term (current) use of aspirin ==

== ENCOUNTER → 2020-05-28 | Outpatient (CLI) | payer OTHER, BC | LOC: SJCVCIMAG 07:35 | PROVIDERS: ATTEND Internal Medicine Cardiovascular Disease | DX: I35.8 Other nonrheumatic aortic valve disorders (principal); R94.31 Abnormal electrocardiogram [ECG] [EKG]; I27.20 Pulmonary hypertension, unspecified; E11.22 Type 2 diabetes mellitus with diabetic chronic kidney disease; I13.11 Hypertensive heart and chronic kidney disease without heart failure, with stage 5 chronic kidney disease, or end stage renal disease; N18.6 End stage renal disease; I25.10 Atherosclerotic heart disease of native coronary artery without angina pectoris; E78.00 Pure hypercholesterolemia, unspecified; G47.33 Obstructive sleep apnea (adult) (pediatric); I65.23 Occlusion and stenosis of bilateral carotid arteries; Z72.0 Tobacco use; Z98.890 Other specified postprocedural states; Z99.2 Dependence on renal dialysis; Z79.899 Other long term (current) drug therapy; Z86.79 Personal history of other diseases of the circulatory system ==

== ENCOUNTER → 2020-06-04 | Outpatient (CLI) | payer OTHER, BC ==
[~2020-06-04] VITALS: Ht 175.3 cm; Wt 94.8 kg
[~2020-06-04] MED LIST changes: +EPOGEN10000 UNIT INJECTION
[2020-06-04 11:08] VITALS: BP 135/74
[2020-06-04 11:34] LABS: HEMATOCRIT 38.7 % (42.0-52.0); HEMOGLOBIN 12.7 gm/dL (14.0-18.0); MCH 29.9 pg (26.0-34.0); MCHC 32.8 g/dL (28.0-37.0); RBC 4.25 mil/uL (4.50-6.00); RDW 16.4 % (10.5-14.5); WBC 8.4 thou/uL (4.0-11.0)
[2020-06-04 11:43] LABS: CALCIUM 8.4 mg/dL (8.5-10.1); CREATININE 5.3 mg/dL (0.7-1.3); POTASSIUM 3.4 mmol/L (3.5-5.1)
--- NOTE | 2020-06-04 11:44 | EKG ---
[facility] [place] [address] ELECTROCARDIOGRAM REPORT Name: EULA LEONG Room #: REG [facility]..#: [id number] Admission: 06/04/20 Attend Phys: Delvin Madrigal MD, Discharge: Date of : 43 Report #: [id number] THIS REPORT FOR: cc: Ruben Holm MD, Cabot L. MD Lammoglia, Francisco J. 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
--- NOTE | 2020-06-04 18:31 | CATHLAB ---
[facility] [place] [address] INVASIVE PROCEDURE REPORT Name: EULA LEONG Room #: REG [facility].#: [id number] Admission: 06/04/20 Attend Phys: Delvin Madrigal MD, Discharge: Date of : 43 Report #: [id number] THIS REPORT FOR: cc: Ruben Holm MD, Cabot L. MD Mancuso, Gerald M. MD [facility] ~ APPROVED REPORT Study performed: 06/04/2020 11:46:48 Patient Details Patient Status: Out-Patient Room #: The patient is a 74 year-old male Event Personnel Delvin Madrigal Food Taster, Lyla Tejeda Spooner, Carly RTR Monitor, Manpreet Castañeda RN media executive Performed Art Access - R femoral artery* Left Heart Cath w/or w/o Coronaries [id number] [facility] Aortogram Abdominal Peripheral Angio 611945 96150 Initial Mod Sed Same Phys/QHP Gr5y 071386 Hemostasis w/ Mynx Procedure Narrative The Right Groin^ was infiltrated with 1% Lidocaine subcutaneous anesthesia. A PINNACLE 6FR Sheath #[id number] sheath was inserted into the RFA^. Coronary angiography was performed using coronary diagnostic catheters. The right coronary system was accessed and visualized with a 3DRC catheter. The left coronary system was accessed and visualized with a JL4 catheter. The left ventricle was accessed and visualized with a PIGTAIL catheter. Left ventriculogram was performed in 30 degree projection. An aortogram of the abdominal aorta was performed. Closure device was deployed with a Fr MYNXGRIP 6/7F #[id number]. The patient tolerated the procedure well and there were no complications associated with the procedure. There was no hematoma. Intraoperative Conscious Sedation Sedation start time: 12:54 Case end Time: 13:16 Fentanyl 100 mcg Versed 2 mg Fluoro Time: 3.06 minutes Dose: DAP 3684.50 cGycm2 436 mGy [facility] [place] [address] [address] INVASIVE PROCEDURE REPORT Name: EULA LEONG [id number] Admission: 06/04/20 Attend Phys: Delvin Madrigal, Discharge: Date of : 43 Report #: [id number] Contrast Type and Amount: Visipaque 100 ml Hemodynamics The aortic pressure is 122/48 mmHg with a mean of 56 mmHg. The left ventricular pressure is 128/4 mmHg with a mean of mmHg. The left ventricular end diastolic pressure is 10 mmHg. Conclusion 1. Normal left ventricular size and systolic function lower limits of normal EF 55% 1-2+ mitral regurgitation #2 abdominal aortogram reveals moderate plaquing no significant aneurysm is noted there is moderate distal aortic stenosis brisk flow into the iliac system bilaterally. #3 left main extensively calcified mild plaquing giving rise to LAD and circumflex #4 the LAD proximally placed stent previously has mild in-stent restenosis 50% giving rise to a diffusely diseased and calcified vessel. No high-grade occlusive disease #5 circumflex OM with an eccentric 60 to 70% lesion proximally calcification it is a dominant vessel with mild distal disease. (Continue medical therapy for this stenosis and follow-up.) #6 small nondominant right coronary artery with mild disease Recommendations plan: Continue aggressive risk factor modification. No indication for coronary intervention. Will follow that proximal dominant circumflex stenosis although does not appear to be high-grade enough for intervention. <ELECTRONICALLY SIGNED> By: Delvin Madrigal MD, FACC 06/04/201830 30 30 Delvin Madrigal MD, FACC /INF
== END | disposition home or self-care (01) ==
LOC: CATH 10:29
PROVIDERS: ATTEND Internal Medicine Cardiovascular Disease
DX: I25.10 Atherosclerotic heart disease of native coronary artery without angina pectoris (principal); R53.83 Other fatigue; I70.0 Atherosclerosis of aorta; I12.9 Hypertensive chronic kidney disease with stage 1 through stage 4 chronic kidney disease, or unspecified chronic kidney disease; E11.22 Type 2 diabetes mellitus with diabetic chronic kidney disease; N18.4 Chronic kidney disease, stage 4 (severe); H40.9 Unspecified glaucoma; E78.5 Hyperlipidemia, unspecified; D64.9 Anemia, unspecified; Z98.890 Other specified postprocedural states; Z79.899 Other long term (current) drug therapy; Z99.2 Dependence on renal dialysis

== ENCOUNTER 2020-08-28 15:54 | Emergency (ER) | payer OTHER, BC ==
[~2020-08-28] VITALS: Ht 177.8 cm; Wt 79.4 kg
[~2020-08-28 15:54] MED LIST changes: +CRESTOR20 MG PO; +LOPERAMIDE 2 MG2 M1 PO; +LORCET 5-325 M1 EACH PO; +NORCO 5-325 TA1 EAC2 PO; +RENAPLEX TABLE1 EACH PO
[2020-08-28 17:37] LABS: HEMATOCRIT 29.8 % (42.0-52.0); HEMOGLOBIN 9.6 gm/dL (14.0-18.0); MCH 28.2 pg (26.0-34.0); MCHC 32.3 g/dL (28.0-37.0); MCV 87.3 fL (80.0-100.0); PLATELET COUNT 240 thou/uL (150-400); RBC 3.41 mil/uL (4.50-6.00); RDW 17.4 % (10.5-14.5); WBC 22.1 thou/uL (4.0-11.0)
[2020-08-28 17:39] LABS: CALCIUM 6.8 mg/dL (8.5-10.1); CREATININE 16.1 mg/dL (0.7-1.3); MAGNESIUM 1.5 mg/dL (1.8-2.4)
[2020-08-28 17:50] LABS: POTASSIUM 1.9 mmol/L (3.5-5.1)
[2020-08-28 18:23] LABS: ABSOLUTE NEUTROPHILS 19.9 thou/uL (1.4-8.2); ANISOCYTOSIS 1+
[2020-08-28 20:00] LABS: HEMATOCRIT 27.3 % (42.0-52.0); MCH 28.7 pg (26.0-34.0); MCHC 33.1 g/dL (28.0-37.0); MCV 86.8 fL (80.0-100.0); PLATELET COUNT 223 thou/uL (150-400); RBC 3.15 mil/uL (4.50-6.00); RDW 17.2 % (10.5-14.5); WBC 20.7 thou/uL (4.0-11.0)
[2020-08-28 20:05] LABS: CALCIUM 6.7 mg/dL (8.5-10.1); CREATININE 16.1 mg/dL (0.7-1.3)
[2020-08-28 20:07] LABS: POTASSIUM 2.9 mmol/L (3.5-5.1)
[2020-08-28 20:58] LABS: ABSOLUTE NEUTROPHILS 19.9 thou/uL (1.4-8.2); ANISOCYTOSIS 1+; POLYCHROMASIA OCCASIONAL
[2020-08-28 21:32] VITALS: BP 143/78
== END 2020-08-28 21:35 | disposition home or self-care (01) ==
LOC: ER 15:54
PROVIDERS: Emergency Medicine
DX: D72.829 Elevated white blood cell count, unspecified (principal); R19.7 Diarrhea, unspecified; I12.9 Hypertensive chronic kidney disease with stage 1 through stage 4 chronic kidney disease, or unspecified chronic kidney disease; E11.22 Type 2 diabetes mellitus with diabetic chronic kidney disease; N18.4 Chronic kidney disease, stage 4 (severe); Z99.2 Dependence on renal dialysis; F17.210 Nicotine dependence, cigarettes, uncomplicated; Z79.82 Long term (current) use of aspirin; Z79.899 Other long term (current) drug therapy; Z20.828 Contact with and (suspected) exposure to other viral communicable diseases

== ENCOUNTER 2020-08-29 12:36 | Inpatient (IN) | payer OTHER, BC ==
[~2020-08-29] VITALS: Ht 180.3 cm; Wt 77.7 kg
--- NOTE | 2020-08-29 13:28 | NUR ---
GARRETT LEONG [phone] PT REPORTS PT CAN BE STUBBORN AND SHE CAN HELP MEDIATE PT GIVES PERMISSION FOR THIS HEAD OF PARTNER DEVELOPMENT TO UPDATE DAUGHER SHE ALSO REPORTS THAT PT HAD BEEN SEEING GI DR AT [facility] AND THEY ARE NOT HAPPY WITH HIM AND THEY ARE SWITCHING TO [facility] AND WILL BE SEEN 09/02
[2020-08-29 13:41] LABS: HEMATOCRIT 25.6 % (42.0-52.0); HEMOGLOBIN 8.5 gm/dL (14.0-18.0); MCH 28.4 pg (26.0-34.0); MCV 86.2 fL (80.0-100.0); PLATELET COUNT 206 thou/uL (150-400); RBC 2.97 mil/uL (4.50-6.00); RDW 17.7 % (10.5-14.5); WBC 25.7 thou/uL (4.0-11.0)
[2020-08-29 13:57] LABS: ALBUMIN 1.8 g/dL (3.4-5.0); CALCIUM 6.5 mg/dL (8.5-10.1); TOTAL BILIRUBIN 0.6 mg/dL (0.2-1.0); TOTAL PROTEIN 6.4 g/dL (6.4-8.2)
[2020-08-29 14:00] LABS: CREATININE 16.9 mg/dL (0.7-1.3); POTASSIUM 1.7 mmol/L (3.5-5.1)
[2020-08-29 14:11] LABS: ABSOLUTE NEUTROPHILS 23.9 thou/uL (1.4-8.2)
[2020-08-29 14:12] LABS: ANISOCYTOSIS 1+
[2020-08-29 17:51] VITALS: BP 85/43
[2020-08-29 17:53] VITALS: BP 101/38
[2020-08-29 18:53] VITALS: BP 118/49
[2020-08-29 20:15] VITALS: BP 105/47
[2020-08-30 03:50] VITALS: BP 97/39
--- NOTE | 2020-08-30 07:53 | NUR ---
PATIENT CARE WAS ASSUMED AT SHIFT CHANGE. PATIENT ASSESSED AND MEDS PASSED. PATIENT C/O DIARRHEA AND ANUS AND SCROTUM PAIN/ BURN. COLD WASH CLOTH PLACED AND THEN LEONIDES APPLIED. THE BED IS IN A LOW AND LOCKED POSITION
[2020-08-30 08:15] VITALS: BP 90/44
[2020-08-30 09:14] LABS: HEMOGLOBIN 7.5 gm/dL (14.0-18.0)
[2020-08-30 09:15] LABS: HEMATOCRIT 23.4 % (42.0-52.0); MCH 27.8 pg (26.0-34.0); MCHC 31.9 g/dL (28.0-37.0); MCV 87.1 fL (80.0-100.0); RBC 2.68 mil/uL (4.50-6.00); RDW 17.5 % (10.5-14.5)
[2020-08-30 09:24] LABS: WBC 40.7 thou/uL (4.0-11.0)
[2020-08-30 12:05] VITALS: BP 100/48
[2020-08-30 14:50] VITALS: BP 98/40
[2020-08-30 16:50] LABS: ALBUMIN 1.7 g/dL (3.4-5.0); CALCIUM 7.1 mg/dL (8.5-10.1); CREATININE 6.2 mg/dL (0.7-1.3); MAGNESIUM 1.7 mg/dL (1.8-2.4); PHOSPHORUS 2.8 mg/dL (2.5-4.9)
[2020-08-30 16:52] LABS: POTASSIUM 2.5 mmol/L (3.5-5.1)
[2020-08-30 16:53] LABS: APTT 41.6 Seconds (24.5-32.8); INR 1.3
[2020-08-30 19:20] VITALS: BP 120/53
[2020-08-31 03:50] VITALS: BP 105/51
[2020-08-31 07:14] LABS: ALBUMIN 1.6 g/dL (3.4-5.0); CALCIUM 7.9 mg/dL (8.5-10.1); CREATININE 7.8 mg/dL (0.7-1.3); PHOSPHORUS 5.8 mg/dL (2.5-4.9); POTASSIUM 3.1 mmol/L (3.5-5.1)
[2020-08-31 08:07] LABS: HEP B SURFACE Ab(ANTI-HBS Non Reactive (()); HEPATITIS B SURFACE AG Negative (Negative)
[2020-08-31 08:21] VITALS: BP 100/51
[2020-08-31 09:16] LABS: ABSOLUTE NEUTROPHILS 12.1 thou/uL (1.4-8.2); EOSINOPHILS 8.8 % (0.0-3.0); HEMATOCRIT 25.4 % (42.0-52.0); HEMOGLOBIN 8.2 gm/dL (14.0-18.0); LYMPHOCYTES 3.6 % (24.0-44.0); MCH 28.1 pg (26.0-34.0); MCHC 32.2 g/dL (28.0-37.0); MCV 87.1 fL (80.0-100.0); MONOCYTES 7.1 % (1.0-8.0); PLATELET COUNT 153 thou/uL (150-400); POLYS 80.5 % (36.0-66.0); RBC 2.91 mil/uL (4.50-6.00); RDW 17.9 % (10.5-14.5)
[2020-08-31 09:37] LABS: WBC 15.1 thou/uL (4.0-11.0)
[2020-08-31 13:02] VITALS: BP 118/61
[2020-08-31 16:22] VITALS: BP 103/60
[2020-08-31 17:23] VITALS: BP 103/60
--- NOTE | 2020-08-31 17:32 | NUR ---
ASSUMED CARE OF PT AT SHIFT CHANGE. ASSESSMENTS CHARTED MEDS GIVEN PER NOV. PT SLEPT ALL SHIFT, REFUSED PO MEDS. NO N/V THIS SHIFT. ONE SMALL BOWEL MOVEMENT WITH MUCOUS. NO C/O PAIN. WILL CONTINUE TO MONITOR AND FOLLOW POC.
[2020-08-31 19:00] VITALS: BP 101/53
[2020-09-01 00:05] VITALS: BP 119/70
[2020-09-01 02:50] LABS: ALBUMIN 1.4 g/dL (3.4-5.0); CALCIUM 7.5 mg/dL (8.5-10.1); CREATININE 8.5 mg/dL (0.7-1.3); PHOSPHORUS 5.2 mg/dL (2.5-4.9); POTASSIUM 3.2 mmol/L (3.5-5.1)
[2020-09-01 05:00] VITALS: BP 92/46
--- NOTE | 2020-09-01 06:51 | NUR ---
PATIENT SLEPT THROUGH MOST OF THE NIGHT. FALL PRECAUTIONS IN PLACE. STOOL SAMPLE COLLECTED. PATIENT WILL ONLY SHAKE HEAD NO WHEN ASKED QUESTIONS. REFUSING PO MEDS. TURNS SELF IN BED. WHEEL CLEANER NOTIFIED OF REFUSAL TO TAKE PO MEDICATIONS. NOTIFIED NEPHRO OF LOW K, CALLED BACK, STATED HE WOULD TAKE CARE OF WHEN HE ARRIVED. CONTINUING TO ASSESS ACCORDING TO POC.
[2020-09-01 08:19] LABS: CLARITY TURBID; COLOR BROWN; SOURCE LIVER DRAIN; TOTAL VOLUME 3 mL
[2020-09-01 08:42] VITALS: BP 91/69
[2020-09-01 09:23] LABS: BF MACROPHAGE 16 %; BF NEUTROPHILS 63 %
[2020-09-01 11:17] VITALS: BP 112/51
[2020-09-01 15:23] VITALS: BP 119/42
--- NOTE | 2020-09-01 19:32 | NUR ---
ASSUMED CARE OF PT AT SHIFT CHANGE. ASSESSMENTS CHARTED. MEDS GIVEN PER MAR. OREINTATION DIFFICULT TO ASSESS PT WILL NOT ANSWER QUESTIONS, DOES NOT WANT TO BE TOUCHED. SLEPT MOST OF SHIFT. CDIFF NEGATIVE. WILL CONTINUE TO MONITOR AND FOLLOW POC.
[2020-09-01 19:43] VITALS: BP 130/97
[2020-09-02 04:19] VITALS: BP 99/58
[2020-09-02 04:23] LABS: ALBUMIN 1.4 g/dL (3.4-5.0); CALCIUM 8.6 mg/dL (8.5-10.1); POTASSIUM 3.4 mmol/L (3.5-5.1)
[2020-09-02 04:25] LABS: CREATININE 9.6 mg/dL (0.7-1.3)
--- NOTE | 2020-09-02 05:00 | NUR ---
PATIENT SLEPT THROUGH PART OF THE NIGHT. PATIENT A&OX1. PT IS UNCOOPERATIVE AND WILL TRY TO REFUSE ALL CARES. MEDS GIVEN PER MAR. PAIN MEDICATION GIVEN PRN PER ORDERS. FALL PRECAUTIONS ARE IN PLACE. NO N/V TONIGHT. CONTINUING TO ASSES CLOSELY ACCORDING TO CARE PLAN.
--- NOTE | 2020-09-02 07:17 | HC ---
[facility] [place] [address] CONSULTATION Name: EULA LEONG Room #: 205-P ADM IN M.R.#: [id number] Admission: 08/29/20 Attend Phys: Milo Wall MD Discharge: Date of : 43 Report #: [id number] THIS REPORT FOR: cc: Ruben Holm MD, Cabot L. MD Barry, Joseph W. MD ~ DATE OF SERVICE: 08/29/2020 INFECTIOUS DISEASE CONSULTATION ATTENDING PHYSICIAN: Dr. Wall. REASON FOR EVALUATION: Gram-negative septicemia with profound laboratory abnormalities, probable hepatic abscess in the setting of chronic diarrhea. HISTORY OF PRESENT ILLNESS: Chart reviewed, the patient examined. This is a 75-year-old gentleman with history of diabetes mellitus, has been complicated by vasculopathy, end-stage renal disease on dialysis as well as hypertension and peripheral vascular disease, who apparently has been ill for a number of months, he has had intractable diarrhea. He states since November, he has developed worsening signs and symptoms, recently had been on peritoneal dialysis, this was discontinued and started on hemodialysis due to the diarrhea, presented to the Emergency Room with fevers and encephalopathy. He did admit to anorexia, poor p.o. intake with loss of 45 pounds as well. Initial evaluation showed striking abnormalities including potassium of 1.9 and a creatinine of 16.1, anion gap of 22. Repeat studies, potassium was 1.7. White count was elevated 22.1. Lactic acid 1.3. Chest x-ray without acute process. Influenza antigen, COVID antigen were both negative. Blood cultures collected on the are now positive with gram-negative rods in 2/2 and gram-positive rods in 1/2. CT abdomen and pelvis was performed showed gas containing collection in the liver. There is question of abscess, also adjacent thickening of the colon with possible mass with perforation, retroperitoneal adenopathy, also a question of large soft tissue mass in the left upper quadrant, empirically dosed with cefepime. He has now been continued on vancomycin and Zosyn. Interestingly, he really denies significant pain at this point including abdominal pain. He does admit to being weak. ALLERGIES: None known. MEDICATIONS: Include Zosyn, vancomycin, potassium replacement. PAST MEDICAL HISTORY: As noted above, diabetes mellitus complicated by end-stage renal disease on dialysis, chronic anemia, hyperlipidemia, hypertension, glaucoma, peripheral vascular disease with stenting. [address] [address] CONSULTATION Name: EULA LEONG Room #: 205-P [facility] ..#: [id number] Admission: 08/29/20 Attend Phys: Milo Wall MD Discharge: Date of : 43 Report #: [id number] SOCIAL HISTORY: History of smoking. No ethanol. No illicit drug use. FAMILY HISTORY: Noncontributory. REVIEW OF SYSTEMS: Otherwise, unremarkable. PHYSICAL EXAMINATION: GENERAL: He appears chronically ill, undernourished. VITAL SIGNS: Temperature 97.5, pulse 66, respirations 14, blood pressure 116/44. SKIN: Warm, dry, no rashes. NECK: Supple. Extraocular muscles are intact. LUNGS: Diminished breath sounds. HEART: Regular. I do not appreciate any murmur. ABDOMEN: Generally soft. There is no apparent tenderness, no peritoneal signs. GENITOURINARY AND RECTAL: Deferred. DIAGNOSTIC AND LABORATORY DATA: CT as described above, possible right upper quadrant abscess, colonic wall thickening, question of a mass. CBC: White count of 25.7, H 8.5 and 25.6, platelets 206. Lactic acid 1.0. Electrolytes: Sodium 132, potassium ____, chloride 93, bicarbonate is 18, anion gap of 21, BUN and creatinine 99 and 16.9. AST of 57, ALT of 31. Blood cultures with gram-negative rods. COVID testing was negative. Influenza antigen was negative. ASSESSMENT AND PLAN: Gram-negative septicemia with expect an enteral source at this point, appears to have some sort of process involving the right upper quadrant perhaps the liver or perforation of a colonic mass, needs to be further investigated. At this point, he is shockingly is not overwhelmingly toxic appearing. We will continue Zosyn should give this reasonable coverage. We will await identification of the organism, it is difficult to know if the diarrhea may be playing a part in this which is chronic enteritis, perhaps due to a foodborne illness, etc. He is certainly at risk for additional complications at this point ____ appeared to have pneumonitis. We will await followup COVID testing. He is profoundly malnourished, trying to replenish his source and noted GI is going to evaluate. It is not entirely clear ____ needs some sort of endoscopy to further assist in the diagnosis. Overall, his prognosis appears guarded. <ELECTRONICALLY SIGNED> By: Morgan Boudreaux MD 09/02/20 0717 1615 [id number] Morgan Boudreaux MD /nt
[2020-09-02 09:10] VITALS: BP 92/86
[2020-09-02 12:57] VITALS: BP 105/28
--- NOTE | 2020-09-02 13:58 | NUR ---
FAXED INSURANCE CARDS TO [facility] RECEIVED CONFIRMATION.
--- NOTE | 2020-09-02 13:59 | NUR ---
met with patient who was sleeping, dtr at bedside. [facility]. Patient may need whipple procedure. Patient admits with diarrhea. Mass found in colon. Sp with dtr at bedside she is agreeable to transfer. Inquired into [facility] who is at capacity. [facility] denied patient. Dtr agreeable to inquiry at [facility] but not agreeable to transfer to [facility]. Sp with [facility] and faxed pertient information. Patient dializes MWF at Dialysis, updated to them patient inpatient at [facility].
--- NOTE | 2020-09-02 15:02 | NUR ---
Nutrition: REC consideration of TPN standard to reach 85 mL/hr. Pt NPO x 3 days with severe malnutrition.
[2020-09-02 16:50] LABS: HEMATOCRIT 23.8 % (42.0-52.0); HEMOGLOBIN 7.9 gm/dL (14.0-18.0); MCH 28.4 pg (26.0-34.0); PLATELET COUNT 137 thou/uL (150-400); RBC 2.77 mil/uL (4.50-6.00); RDW 18.7 % (10.5-14.5); WBC 19.4 thou/uL (4.0-11.0)
[2020-09-02 17:13] LABS: ABSOLUTE NEUTROPHILS 16.3 thou/uL (1.4-8.2); ANISOCYTOSIS 1+
[2020-09-02 18:43] LABS: ALBUMIN 1.6 g/dL (3.4-5.0); CALCIUM 8.1 mg/dL (8.5-10.1); POTASSIUM 3.8 mmol/L (3.5-5.1); TOTAL BILIRUBIN 0.8 mg/dL (0.2-1.0); TOTAL PROTEIN 5.6 g/dL (6.4-8.2)
[2020-09-02 18:44] LABS: CREATININE 3.4 mg/dL (0.7-1.3)
--- NOTE | 2020-09-02 19:29 | NUR ---
CONFUSED. COMBATIVE. REFUSES INTERVENTIONS. ANURIC. DIALYSIS TODAY. TRANSFERRING TO WHEN BED AVAILABLE. FALL PRECAUTIONS IN PLACE. WILL CONTINUE TO FOLLOW CLOSELY.
[2020-09-02 20:01] VITALS: BP 91/43
--- NOTE | 2020-09-02 20:43 | NUR ---
1945: AWAITING TRANSPORT TO PER EMS. CM SPOKE WITH DAUGHTER ABOUT TRANSFER, SHE IS AWARE OF PATSY WANG AND AGREES. INCONTINENT LARGE AMOUNT LOOSE DARK GREEN STOOL. CONTINUE TO ASSES CLOSELY. 2004: REPORT GIVEN TO TORITO CAPONE AT . AWAITING EMS 2024: EMS HERE. REPORT GIVEN. TRANSFERED TO [facility]. BELONGINGS SENT WITH PATIENT INCLUDING 2 PAIRS OF GLASSES. 2027: CALLED AT [phone] TO LET THEM KNOW HE IS ON WAY.
--- NOTE | 2020-09-03 08:18 | HC ---
[facility] [place] [address] CONSULTATION Name: EULA LEONG Room #: 205-P [facility] IN M.R.#: [id number] Admission: 08/29/20 Attend Phys: Milo Wall MD Discharge: 09/02/20 Date of : 43 Report #: [id number] THIS REPORT FOR: cc: Ruben Holm MD, Cabot L. MD McKittrick, Richard James MD ~ REASON FOR CONSULTATION: Possible colon cancer with liver mets. HISTORY OF PRESENT ILLNESS: The patient is a 75-year-old gentleman who was admitted here several days ago, who has evidently history of diarrhea. On CAT scan, there is a concern about hepatic and splenic masses with involvement of the duodenum and also possibly the right hepatic lobe. The patient does not have a tissue diagnosis. There is also a recent IR done on the right lobe of liver, revealing polymicrobial bacteria. The patient is lying in bed, is nonverbal. When asked a question, he shakes his head, but it does not necessarily appear to be directed towards answering the question. He sort of shake his arms and legs, not sure whether this is out of frustration. Does not really appear to be in pain. He was resting comfortably when I entered the room. Reviewed the chart, but no information obtainable from the patient. PAST MEDICAL HISTORY: Notable for the suspected colon cancer, though not tissue diagnosis proven with CAT scan suggesting hepatic flexure and splenic flexure masses with involvement of lymph nodes, the duodenum and possible right liver though may be abscess. The patient appears to have hepatic abscess drain in place. Also, has end-stage renal disease, hypertension, diabetes mellitus, debility, also has a history of coronary artery disease. SOCIAL HISTORY: Daughter is DPOA. FAMILY HISTORY: Not obtainable. CURRENT MEDICATIONS: At this time include normal saline, Zofran, insulin on a sliding scale, Zosyn q.12, electrolyte replacement. RADIOLOGIC STUDIES: Include the CT head, which did not show acute process. MRI head is pending. CT abdomen and pelvis from several days ago ____ air fluid collection right hepatic lobe measuring 5.8 x 4.2 cm medially adjacent to the right hepatic lobe mass measuring 8 x 5 cm. This mass is inseparable from the adjacent colon mass, which measures 6 x 5 cm, likely representing direct invasion of the liver. Also, another colonic mass identified in the descending colon measuring 9.3 x 7.3 cm. There are prominent bilateral iliac chain lymph nodes ____ enhancing mass in the base of the bladder. LABORATORY DATA: Notable for BUN of 67, creatinine 9.6, AST 57, total bilirubin [address] [address] CONSULTATION Name: EULA LEONG Room #: 205-P DIS IN M.R.#: [id number] Admission: 08/29/20 Attend Phys: Milo Wall MD Discharge: 09/02/20 Date of : 43 Report #: [id number] 0.6, alkaline phosphatase 112, albumin 1.4. Coags were mostly normal on admission though APTT slightly elevated at 41.6. White count 15.1, hemoglobin 8.2, MCV 87.1, platelets 153. Differential includes increased neutrophils. Tests were negative for influenza A and influenza B, COVID-19 antigen, SARS-CoV-2 PCR not detected. ASSESSMENT AND PLAN: 1. Probable colon cancer with hepatic abscess, end-stage renal disease and cognitive impairment. The patient would not be a candidate for chemotherapy, even if we knew this is cancer with intercurrent infection. If infection clears, could discuss but I am worried with the patient's comorbidities, he may never be a candidate for safely receiving and benefitting from chemotherapy will be available. 2. Hepatic abscess. IR drain in place. Continues antibiotics. Defer to Infectious Disease and General Surgery. 3. Diabetes. Sliding scale insulin and management per others. 4. Hypertension. Management per others. 5. End-stage renal disease, dialysis per others. 6. Prognosis is extremely poor. <ELECTRONICALLY SIGNED> By: Syed Yo MD 09/03/20 0818 0728 7 Syed Yo MD /nt
--- NOTE | 2020-09-03 09:21 | NUR ---
patient transferred to last evening. Sp with dtr who was in agreement. Sp with RN Sep, night RN, Chart copied. Radiology uploaded to cloud. Sp wtith transfer team who reports patient with accepting phys Dr Yang. Emtalla completed, [facility] for 1800. RN called report to no further needs.
== END 2020-09-02 20:25 | disposition short-term general hospital (02) | DRG 871 ==
LOC: ER 12:36 → 2N 14:44 → EROBS 14:44 → 2N 18:15
PROVIDERS: Emergency Medicine; Internal Medicine Nephrology; Radiology Vascular & Interventional Radiology; Surgery; ADMIT Hospitalist; ATTEND Hospitalist
PROC: 0F9130Z Drainage of Right Lobe Liver with Drainage Device, Percutaneous Approach (ICD-10-PCS; principal; 2020-08-30)
PROC: 5A1D70Z Performance of Urinary Filtration, Intermittent, Less than 6 Hours Per Day (ICD-10-PCS; 2020-09-02)
DX: A41.51 Sepsis due to Escherichia coli [E. coli] (principal); K75.0 Abscess of liver; G93.41 Metabolic encephalopathy; N18.6 End stage renal disease; E43 Unspecified severe protein-calorie malnutrition; R57.1 Hypovolemic shock; K63.1 Perforation of intestine (nontraumatic); K65.1 Peritoneal abscess; K92.1 Melena; C18.9 Malignant neoplasm of colon, unspecified; E87.1 Hypo-osmolality and hyponatremia; I12.0 Hypertensive chronic kidney disease with stage 5 chronic kidney disease or end stage renal disease; A41.4 Sepsis due to anaerobes; Z20.828 Contact with and (suspected) exposure to other viral communicable diseases; E11.22 Type 2 diabetes mellitus with diabetic chronic kidney disease; E78.5 Hyperlipidemia, unspecified; E87.6 Hypokalemia; I25.10 Atherosclerotic heart disease of native coronary artery without angina pectoris; K52.9 Noninfective gastroenteritis and colitis, unspecified; E11.51 Type 2 diabetes mellitus with diabetic peripheral angiopathy without gangrene; F17.210 Nicotine dependence, cigarettes, uncomplicated; D63.8 Anemia in other chronic diseases classified elsewhere; Z60.2 Problems related to living alone; R63.4 Abnormal weight loss; G47.00 Insomnia, unspecified; Z95.820 Peripheral vascular angioplasty status with implants and grafts; Z79.82 Long term (current) use of aspirin; Z79.899 Other long term (current) drug therapy; Z82.49 Family history of ischemic heart disease and other diseases of the circulatory system; Z68.23 Body mass index [BMI] 23.0-23.9, adult; Z99.2 Dependence on renal dialysis
CPT/HCPCS: 10081; 32100